=== PATIENT | male | born 1970 | race Caucasian/White ===

== ENCOUNTER 2021-12-05 05:26 | Emergency (ER) | payer MEDICAID, OTHER ==
[~2021-12-05] VITALS: Ht 175.3 cm; Wt 95.3 kg
[~2021-12-05 05:26] MED LIST: ALLO100T PO; ALPR2TAB7 PO; DOCU-265 PO; FLEXERIL PO; LEVE250T2 PO; OXYC15TA2 PO; RIVA15TA PO
--- NOTE | 2021-12-05 05:43 | NUR ---
Dr. Miller at bedside for MSE.
[2021-12-05 06:06] LABS: MEAN CORPUSCULAR HEMOGLOBIN 32.2 uug (23.8-33.4); MEAN CORPUSCULAR VOLUME 88.6 fL (73.0-96.2); PLATELET COUNT (AUTO) 221 K/uL (152-348)
[2021-12-05] MEDS ORDERED: SITA50TA PO (06:08)
[2021-12-05] MEDS ORDERED: LEVE500T9 PO (06:08)
[2021-12-05] MEDS ORDERED: METF-440 PO (06:08)
[2021-12-05] MEDS ORDERED: OLAN2.5T3 PO (06:08)
[2021-12-05] MEDS ORDERED: VENL75TA4 PO (06:08)
[2021-12-05] MEDS ORDERED: CLON0.5T PO (06:08)
[2021-12-05 06:15] LABS: CARBON DIOXIDE 27 mmol/L (21-32); CHLORIDE 99 mmol/L (98-107); CREATININE 0.9 mg/dL (0.6-1.3); GLUCOSE 127 mg/dL (74-106); POTASSIUM 3.7 mmol/L (3.5-5.1); UREA NITROGEN, BLOOD 10 mg/dL (7-18)
[2021-12-05 06:21] LABS: ALANINE AMINOTRANSFERASE 33 U/L (16-63); ALKALINE PHOSPHATASE 101 U/L (50-136); ASPARTATE AMINOTRANSFERASE 15 U/L (15-37); BILIRUBIN,DIRECT 0.1 mg/dL (0.0-0.2); BILIRUBIN,TOTAL 0.5 mg/dL (0.2-1.0); CREATINE KINASE, TOTAL 113 U/L (39-308); ETHANOL 89 MG/DL (0-0); TOTAL PROTEIN, SERUM 7.7 g/dL (6.4-8.2)
[2021-12-05 06:23] LABS: ACETAMINOPHEN < 2.0 ug/mL (10-30)
--- NOTE | 2021-12-05 06:34 | NUR ---
Pt provided urine sample, sent to lab.
[2021-12-05 06:44] LABS: *BILIRUBIN,URIN NEGATIVE (NEGATIVE); *BLOOD, URINE NEGATIVE (NEGATIVE); *COLOR,URINE YELLOW (YELLOW); *KETONES,URINE NEGATIVE (NEGATIVE); *UROBILINOGEN,URINE 0.2 E.U./dl (NORMAL); LEUKOCYTE ESTERASE ,URINE NEGATIVE (NEGATIVE); NITRITE, URINE NEGATIVE (NEGATIVE); UGLUCOSE NEGATIVE (NEGATIVE)
[2021-12-05 06:48] LABS: *CLARITY,URINE CLEAR (CLEAR)
[2021-12-05 06:53] LABS: *AMPHETAMINE, URINE NEGATIVE (NEGATIVE); *CANNABINOID, URINE NEGATIVE (NEGATIVE); *COCCAINE, URINE NEGATIVE (NEGATIVE); *OPIATE, URINE NEGATIVE (NEGATIVE); *PHENCYCLIDINE SCREEN,URINE NEGATIVE (NEGATIVE)
--- NOTE | 2021-12-05 07:05 | NUR ---
Received a report from Nurse Cuadra.
--- NOTE | 2021-12-05 07:10 | NUR ---
Patient awake, alert and orientedx4. Not in distress
--- NOTE | 2021-12-05 08:00 | NUR ---
Patient provided food at bedside.
--- NOTE | 2021-12-05 08:30 | NUR ---
Called michael, said pt can go to [facility] voluntarily. Spoke with pt and said he was in [facility] last week and willing to be admitted there again.
--- NOTE | 2021-12-05 08:40 | NUR ---
Faxed pts summary report to [facility].
--- NOTE | 2021-12-05 09:21 | NUR ---
Called [facility] intake, spoke with thai said that the supervisor [employer] is currently reviewing pts summary report and will call back for update.
--- NOTE | 2021-12-05 10:09 | NUR ---
Fermin from [facility] called, said pt cannot be transferred to [facility] because he was discharge there yesterday. Fermin said he will coordinate with [facility] then will give me a call back.
--- NOTE | 2021-12-05 12:56 | NUR ---
Spoke with Arabella law from [facility] said they referred pt in [facility] and no updates yet.
--- NOTE | 2021-12-05 16:19 | NUR ---
Cristal andre from [facility], said that boiler house supervisor in [place] is now reviewing the pts summary report.
--- NOTE | 2021-12-05 18:31 | NUR ---
Called Art from [facility], said he cant get any updates at this time because its change of shift. He will call back 7:30-7:45pm for update.
--- NOTE | 2021-12-05 19:15 | NUR ---
Received thorough report from staff DARREL Lopez using sbar method. All questions answered. Pt medically cleared for psych, [facility] him for he was just dced from there, but [facility] is going to see if he can be transfered there. Expecting a call from [facility] by 1934. if no call, will call them Pt is aaox4 with good color and temp. no s/sx of distress present.
--- NOTE | 2021-12-05 19:55 | NUR ---
Pt asked for some snacks, asked if he has had dinner yet and he said no. Pt asked if he wants to have dinner and he said yes. Pt given dinner tray along with 3 cups of juice andf 3 packs of saltines. Pt consumed approx 80% of dinner. Pt states that he is full and has had enough.
[2021-12-05] MEDS ORDERED: levETIRAcetam 250 MG TABLET PO ONE (20:15)
[2021-12-05] MEDS ORDERED: METFORMIN HCL 500 MG TABLET PO ONE (20:30)
[2021-12-05] MEDS ORDERED: CLONAZEPAM 0.5 MG TABLET PO ONE (20:30)
[2021-12-05] MEDS ORDERED: levETIRAcetam 250 MG TABLET ONE (20:40)
[2021-12-05] MEDS ORDERED: METFORMIN HCL 500 MG TABLET ONE (20:40)
[2021-12-05] MEDS ORDERED: CLONAZEPAM 0.5 MG TABLET ONE (20:41)
--- NOTE | 2021-12-05 20:53 | NUR ---
call placed to [facility]. at [phone]. The payloader machine operator then gave me the number to their intake line at [phone].
--- NOTE | 2021-12-05 20:58 | NUR ---
call placed to [facility] intake line at [phone] and spoke with rep Miguel Angel who said that they dont have any word from [facility] just yet and that he will call us when they accept him. I told him that [facility] is tired of keeping him and will dc pt if no transfer arrangements can be made. Pt is resting comfortably in pos of comfort. waiting pt for transfer. VSS. PE WNL, NAD
--- NOTE | 2021-12-05 21:10 | NUR ---
Will redial and speak to Miguel Angel in approx 45 min if no phone call received per edmd./
--- NOTE | 2021-12-05 21:32 | NUR ---
Call placed to Julia for EDMD consult regarding dcing pt since [facility] still cannot find room for him. Julia said that we are free to dc him since he is voluntary and not on a hold. EDMD will be preparing him for dc.
--- NOTE | 2021-12-05 21:40 | NUR ---
EDMD at bedside to discuss dispo with pt. Pt told that he will be dced from ED. Pt agreed and is fine with that decision. Pt asked if there is any familiy we can contact but pt said that he has no family that will accept. His fathers info was looked up in google and he has an IMDB page, but pt states that father wont accept him.
[2021-12-05] MEDS ORDERED: LEVE500T20 PO (21:56)
[2021-12-05] MEDS ORDERED: CLON1TAB12 PO ×2 (21:56→21:59)
[2021-12-05] MEDS ORDERED: OXYC-133 PO ×2 (21:56→21:59)
--- NOTE | 2021-12-05 22:11 | NUR ---
Pt dced form ED after given dc instructions and pt confirmed understanding of aftercare. Pt stated that he will be willing to go to [facility]. Pt given directions to [facility] along with address and explained how to get there using the [facility]. Pt said that he is familiar on how to get there. EDMD wrote on DC instructions that pt is medically cleared and printed all lab and diagnostic results. Pt said that no other testing will be required and to present at [facility] just the way he presented here. Pt acknowledged understanding. Pt denies any pain, sob, n/v, dizziness or discomfort. VSS, PE WNL, NAD. No s/sxof distress present.
[2021-12-05 22:18] VITALS: BP 126/79
== END 2021-12-05 22:05 | disposition home or self-care (01) ==
LOC: ER 05:40
DX: F31.9 Bipolar disorder, unspecified (principal); F41.9 Anxiety disorder, unspecified; F19.10 Other psychoactive substance abuse, uncomplicated; F10.20 Alcohol dependence, uncomplicated; G40.909 Epilepsy, unspecified, not intractable, without status epilepticus; Z86.718 Personal history of other venous thrombosis and embolism; F17.210 Nicotine dependence, cigarettes, uncomplicated; G89.29 Other chronic pain; M54.9 Dorsalgia, unspecified; Z59.00 Homelessness unspecified; Z20.822 Contact with and (suspected) exposure to COVID-19
CPT/HCPCS: 36415; 85025; A4663; G0480

== ENCOUNTER 2021-12-19 23:49 | Emergency (ER) | payer MEDICAID ==
[~2021-12-19] VITALS: Ht 175.3 cm; Wt 95.3 kg
[~2021-12-19 23:49] MED LIST changes: -ALLO100T PO; -ALPR2TAB7 PO; +CLON0.5T PO; +CLON1TAB12 PO; -DOCU-265 PO; -FLEXERIL PO; -LEVE250T2 PO; +LEVE500T20 PO; +LEVE500T9 PO; +METF-440 PO; +OLAN2.5T3 PO; +OXYC-133 PO; -OXYC15TA2 PO; -RIVA15TA PO; +SITA50TA PO; +VENL75TA4 PO
--- NOTE | 2021-12-20 00:55 | NUR ---
Dr. Shelton at bedside for MSE.
--- NOTE | 2021-12-20 01:12 | NUR ---
Xray at bedside.
[2021-12-20 01:32] LABS: HEMATOCRIT 38.7 % (36.7-47.1); MEAN CORPUSCULAR HEMOGLOBIN 31.7 uug (23.8-33.4); MEAN CORPUSCULAR VOLUME 90.9 fL (73.0-96.2); PLATELET COUNT (AUTO) 242 K/uL (152-348)
[2021-12-20 01:36] LABS: CARBON DIOXIDE 25 mmol/L (21-32); CHLORIDE 103 mmol/L (98-107); CREATININE 1.1 mg/dL (0.6-1.3); GLUCOSE 198 mg/dL (74-106); POTASSIUM 3.9 mmol/L (3.5-5.1); UREA NITROGEN, BLOOD 13 mg/dL (7-18)
[2021-12-20 01:41] LABS: ETHANOL 164 MG/DL (0-0)
[2021-12-20 01:42] LABS: ALANINE AMINOTRANSFERASE 42 U/L (16-63); ALKALINE PHOSPHATASE 104 U/L (50-136); ASPARTATE AMINOTRANSFERASE 12 U/L (15-37); BILIRUBIN,DIRECT 0.1 mg/dL (0.0-0.2); BILIRUBIN,TOTAL 0.3 mg/dL (0.2-1.0); TOTAL PROTEIN, SERUM 7.4 g/dL (6.4-8.2)
--- NOTE | 2021-12-20 01:44 | NUR ---
Pt provided urine sample, sent to lab.
[2021-12-20] MEDS ORDERED: OLANZAPINE 5 MG TABLET ONE ×2 (01:58→02:03)
[2021-12-20] MEDS ORDERED: OLANZAPINE 5 MG TABLET PO ONE ×2 (02:00→02:15)
[2021-12-20 02:11] LABS: *BILIRUBIN,URIN NEGATIVE (NEGATIVE); *BLOOD, URINE NEGATIVE (NEGATIVE); *CLARITY,URINE CLEAR (CLEAR); *COLOR,URINE YELLOW (YELLOW); *KETONES,URINE NEGATIVE (NEGATIVE); *UROBILINOGEN,URINE 0.2 E.U./dl (NORMAL); LEUKOCYTE ESTERASE ,URINE NEGATIVE (NEGATIVE); NITRITE, URINE NEGATIVE (NEGATIVE); PH,URINE 5.5 (5.0-8.0); UGLUCOSE NEGATIVE (NEGATIVE)
[2021-12-20 02:25] LABS: *AMPHETAMINE, URINE NEGATIVE (NEGATIVE); *CANNABINOID, URINE NEGATIVE (NEGATIVE); *COCCAINE, URINE NEGATIVE (NEGATIVE); *OPIATE, URINE NEGATIVE (NEGATIVE); *PHENCYCLIDINE SCREEN,URINE NEGATIVE (NEGATIVE)
[2021-12-20 02:26] LABS: ACETAMINOPHEN < 2.0 ug/mL (10-30)
[2021-12-20] MEDS ORDERED: CYANOCOBALAMIN 1000 MCG/ML VIAL ONE (02:28)
[2021-12-20] MEDS ORDERED: CYANOCOBALAMIN 1000 MCG/ML VIAL IM ONE (02:30)
[2021-12-20] MEDS ORDERED: THIAMINE HCL 100 MG TABLET PO ONE (06:30)
[2021-12-20] MEDS ORDERED: THIAMINE HCL 100 MG TABLET ONE (06:52)
--- NOTE | 2021-12-20 07:55 | NUR ---
Pt medically cleared by Dr. Trujillo.
--- NOTE | 2021-12-20 08:00 | NUR ---
Called Julia Thomas RN for pt psych evaluation.
--- NOTE | 2021-12-20 10:13 | NUR ---
Received call back from [facility], Pt going to [address], Room 143A, Accepting MD is Dr. Ham. Number to report to .
--- NOTE | 2021-12-20 10:20 | NUR ---
Called [facility] ambulance for transport to [place], eta [phone].
--- NOTE | 2021-12-20 10:30 | NUR ---
Julia Thomas RN PET arrived to ER for pt psych evaluation.
[2021-12-20] MEDS ORDERED: IBUPROFEN 400 MG TABLET ONE (11:18)
[2021-12-20] MEDS ORDERED: IBUPROFEN 400 MG TABLET PO ONE (11:30)
--- NOTE | 2021-12-20 12:13 | NUR ---
Report given to Fermin Crowley.
--- NOTE | 2021-12-20 12:33 | NUR ---
[facility] arrived to ER to transport patient to [place]. Report and documentation given to EMT.
== END 2021-12-20 12:38 ==
LOC: ER 23:51
DX: R45.851 Suicidal ideations (principal); F31.9 Bipolar disorder, unspecified; G40.909 Epilepsy, unspecified, not intractable, without status epilepticus; F10.129 Alcohol abuse with intoxication, unspecified; Y90.6 Blood alcohol level of 120-199 mg/100 ml; U07.1 COVID-19; R00.0 Tachycardia, unspecified; M10.9 Gout, unspecified; Z79.899 Other long term (current) drug therapy; F42.9 Obsessive-compulsive disorder, unspecified; F90.9 Attention-deficit hyperactivity disorder, unspecified type; F41.9 Anxiety disorder, unspecified; E11.9 Type 2 diabetes mellitus without complications; Z79.84 Long term (current) use of oral hypoglycemic drugs
CPT/HCPCS: 36415; 71045; 80048; 80076; 80299; 80307; 80320 ×2; 81003; 82607; 83735; 85025; 87426; 93005; 96372; 99285; C9803; J3420; U0003; A4663; G0480